=== PATIENT | female | born 1960 ===

== ENCOUNTER 2021-09-06 12:30 | Inpatient (IN) | payer OTHER ==
[~2021-09-06] VITALS: Ht 149.9 cm; Wt 62.6 kg
[2021-09-06] MEDS ORDERED: SYNTHROID125 MCG PO (13:41)
[2021-09-06] MEDS ORDERED: ATORVASTATIN CA10 MG PO (13:41)
[2021-09-06] MEDS ORDERED: GLUMETZA500 MG PO (13:41)
[2021-10-01] MEDS ORDERED: HYOSCYAMINE0.125 M1 SL (13:45)
[2021-10-01] MEDS ORDERED: OXYC1TAB9 PO (13:45)
== END 2021-10-01 14:35 | disposition home or self-care (01) | DRG 330 ==
LOC: SURH 09-09 07:00 → O/R 09-29 06:06 → SURG 09-29 06:06
PROVIDERS: ADMIT Surgery; ATTEND Surgery
PROC: 0DBP4ZZ Excision of Rectum, Percutaneous Endoscopic Approach (ICD-10-PCS; 2021-09-29)
PROC: 07BB4ZZ Excision of Mesenteric Lymphatic, Percutaneous Endoscopic Approach (ICD-10-PCS; 2021-09-29)
PROC: 0DJD8ZZ Inspection of Lower Intestinal Tract, Via Natural or Artificial Opening Endoscopic (ICD-10-PCS; 2021-09-29)
PROC: 0DTN4ZZ Resection of Sigmoid Colon, Percutaneous Endoscopic Approach (ICD-10-PCS; principal; 2021-09-29 07:30)
DX: C19 Malignant neoplasm of rectosigmoid junction (principal); K62.5 Hemorrhage of anus and rectum; K56.1 Intussusception; R19.4 Change in bowel habit; R59.0 Localized enlarged lymph nodes; R10.9 Unspecified abdominal pain; Z20.822 Contact with and (suspected) exposure to COVID-19; I10 Essential (primary) hypertension; E11.9 Type 2 diabetes mellitus without complications; E03.8 Other specified hypothyroidism

== ENCOUNTER 2021-09-28 11:34 | Day surgery (SDC) | payer OTHER ==
[~2021-09-28 11:34] MED LIST: ATORVASTATIN CA10 MG PO; GLUMETZA500 MG PO; SYNTHROID125 MCG PO
== END 2021-09-28 16:00 | disposition home or self-care (01) ==
LOC: AMB-ENDOS 11:34
PROVIDERS: ATTEND Surgery
DX: C19 Malignant neoplasm of rectosigmoid junction (principal); D37.4 Neoplasm of uncertain behavior of colon; K56.1 Intussusception; K62.5 Hemorrhage of anus and rectum; Z20.822 Contact with and (suspected) exposure to COVID-19; E03.9 Hypothyroidism, unspecified; E78.5 Hyperlipidemia, unspecified